=== PATIENT | female | born 1995 | race Two or more races ===

== ENCOUNTER 2024-11-03 09:29 | Outpatient (CLI) | payer OTHER | END 2024-11-03 09:30 | disposition home or self-care (01) | LOC: PRENATAL 09:29 | PROVIDERS: ATTEND Obstetrics & Gynecology Maternal & Fetal Medicine | DX: O36.80X0 Pregnancy with inconclusive fetal viability, not applicable or unspecified (principal); Z36.82 Encounter for antenatal screening for nuchal translucency; Z14.8 Genetic carrier of other disease; O10.019 Pre-existing essential hypertension complicating pregnancy, unspecified trimester; Z3A.12 12 weeks gestation of pregnancy ==

== ENCOUNTER → 2024-12-29 08:12 | Outpatient (CLI) | payer OTHER | END | disposition home or self-care (01) | LOC: PRENATAL 08:12 | PROVIDERS: ATTEND Obstetrics & Gynecology Maternal & Fetal Medicine | DX: O44.00 Complete placenta previa NOS or without hemorrhage, unspecified trimester (principal); O10.019 Pre-existing essential hypertension complicating pregnancy, unspecified trimester; Z3A.20 20 weeks gestation of pregnancy ==

== ENCOUNTER 2025-02-21 14:32 | Outpatient (CLI) | payer OTHER | END 2025-02-21 14:33 | disposition home or self-care (01) | LOC: PRENATAL 14:32 | PROVIDERS: ATTEND Obstetrics & Gynecology Maternal & Fetal Medicine | DX: O26.849 Uterine size-date discrepancy, unspecified trimester (principal); O10.019 Pre-existing essential hypertension complicating pregnancy, unspecified trimester; Z3A.28 28 weeks gestation of pregnancy ==

== ENCOUNTER 2025-04-06 07:49 | Outpatient (CLI) | payer OTHER | END 2025-04-06 09:11 | disposition home or self-care (01) | LOC: PRENATAL 07:49 | PROVIDERS: ATTEND Obstetrics & Gynecology Maternal & Fetal Medicine | DX: O26.849 Uterine size-date discrepancy, unspecified trimester (principal); O36.8199 Decreased fetal movements, unspecified trimester, other fetus; O10.019 Pre-existing essential hypertension complicating pregnancy, unspecified trimester; Z3A.35 35 weeks gestation of pregnancy ==

== ENCOUNTER 2025-04-18 14:00 | Inpatient (IN) | payer OTHER ==
[~2025-04-18] VITALS: Ht 157.5 cm; Wt 88.0 kg
[2025-04-18 14:50] LABS: URINE APPEARANCE Cloudy; URINE BILIRRUBIN Negative (NEGATIVE); URINE BLOOD Large; URINE COLOR Yellow; URINE GLUCOSE Negative (NEGATIVE); URINE KETONE Trace (NEGATIVE); URINE LEUKOCYTE Moderate; URINE NITRATE Negative; URINE PROTEIN Negative (NEGATIVE); URINE UROBILINOGEN 1.0 E.U./dl
[2025-04-18 14:51] LABS: BASO % 0.8 % (0.1-1.2); EOS # 0.13 (0.04-0.54); EOS % 0.9 % (0.7-7.0); LYMPH # 1.83 (1.18-3.74); LYMPH % 12.9 % (19.3-53.1); MEAN PLATELET VOLUME 9.10 fl (9.4-12.4); MONO # 0.97 (0.24-0.82); MONO % 6.8 % (4.7-12.5); NEUT # 10.46 (1.56-6.13); NEUT % 73.8 % (34.0-71.1); RED CELL DISTRIBUTION WIDTH 12.9 % (11.6-14.4)
[2025-04-18 14:54] LABS: URINE BACTERIA 6845.9 uL (0.0-1933); URINE EPITHELIAL CELLS 73.3 uL (0.0-38.8); URINE RBC 10.4 uL (0.0-20.8); URINE WBC 317.9 uL (0.0-23.2)
[2025-04-18 15:30] LABS: ALT/SGPT 28.0 U/L (12-78); AST/SGOT 16.0 U/L (15-37); BILIRUBIN TOTAL 0.47 mg/dL (0.3-1.2); BUN CREA RATIO 16.0 (7.0-25.0); CREATININE SERUM 0.58 mg/dL (0.55-1.02); GFR 120.47; GLOBULINA 3.5 G/DL (2.4-3.5); GLUCOSE FASTING 115.0 mg/dL (65-100); OSMOLALITY SERUM 279.0 MOSM/KG (275-295)
[2025-04-18 15:43] LABS: URINE CAST 0.58 uL (0.0-1.40)
[2025-04-18 16:24] LABS: INR 0.98
[2025-04-18 17:07] LABS: BASOPHIL MAN 1.0 %; LYMPHOCYTE MAN 8.0 %; METAMYELOCYTE 4.0 %; MONOCYTE MAN 5.0 %; NEUTROPHILS MAN 81.0 %
[2025-05-09] MEDS ORDERED: RINGERS SOLUTION,LACTATED 1,000 ML IV SCH (07:00)
[2025-05-09 07:12] VITALS: BP 132/89
[2025-05-09] MEDS ORDERED: ST. JOSEPH ASPI81 M2 PO (07:48)
[2025-05-09] MEDS ORDERED: LABETALOL HCL100 MG PO (07:48)
[2025-05-09] MEDS ORDERED: PRENATAL + DHA1 EAC1 PO (07:48)
[2025-05-09] MEDS ORDERED: MISOPROSTOL 25 MCG/4 ML GEL.W.APPL VAG ONE ×4 (08:15→21:15)
[2025-05-09 08:17] LABS: URINE APPEARANCE Turbid; URINE BILIRRUBIN Negative (NEGATIVE); URINE BLOOD Trace; URINE COLOR Dark Yellow; URINE GLUCOSE Negative (NEGATIVE); URINE KETONE Trace (NEGATIVE); URINE LEUKOCYTE Large; URINE NITRATE Negative; URINE PROTEIN Trace (NEGATIVE); URINE UROBILINOGEN 1.0 E.U./dl
[2025-05-09 08:20] LABS: BASO % 0.8 % (0.1-1.2); EOS # 0.10 (0.04-0.54); EOS % 0.7 % (0.7-7.0); LYMPH # 1.72 (1.18-3.74); LYMPH % 12.0 % (19.3-53.1); MEAN PLATELET VOLUME 9.30 fl (9.4-12.4); MONO # 1.05 (0.24-0.82); MONO % 7.3 % (4.7-12.5); NEUT # 10.87 (1.56-6.13); NEUT % 75.9 % (34.0-71.1); RED CELL DISTRIBUTION WIDTH 13.1 % (11.6-14.4)
[2025-05-09 08:21] LABS: URINE RBC 3.6 uL (0.0-20.8); URINE WBC 2612.6 uL (0.0-23.2)
[2025-05-09 08:36] LABS: URINE BACTERIA > 9821.5 uL (0.0-1933); URINE CAST 0.14 uL (0.0-1.40); URINE CRYSTALS FEW /HPF; URINE EPITHELIAL CELLS > 201.7 uL (0.0-38.8)
[2025-05-09] MEDS ORDERED: CYCLOBENZAPRINE HCL 5 MG TABLET PO NR (09:05)
[2025-05-09 09:07] LABS: ALT/SGPT 20.0 U/L (12-78); AST/SGOT 16.0 U/L (15-37); BILIRUBIN TOTAL 0.76 mg/dL (0.3-1.2); BUN CREA RATIO 12.0 (7.0-25.0); CREATININE SERUM 0.65 mg/dL (0.55-1.02); GFR 105.63; GLOBULINA 3.5 G/DL (2.4-3.5); GLUCOSE FASTING 89.0 mg/dL (65-100); OSMOLALITY SERUM 273.0 MOSM/KG (275-295)
[2025-05-09 09:49] LABS: INR 0.98
[2025-05-09 11:21] VITALS: BP 118/85
[2025-05-09] MEDS ORDERED: MORPHINE SULFATE 4 MG/ML CARTRIDGE IV ONE (11:45)
[2025-05-09 12:05] VITALS: BP 125/81
[2025-05-09 13:07] LABS: BAND MAN 4.0 %; LYMPHOCYTE MAN 13.0 %; METAMYELOCYTE 3.0 %; MONOCYTE MAN 9.0 %; NEUTROPHILS MAN 70.0 %
[2025-05-09 15:22] VITALS: BP 128/81
[2025-05-09] MEDS ORDERED: MORPHINE SULFATE 4 MG/ML VIAL IV ONE ×2 (17:45→21:45)
[2025-05-09 20:00] VITALS: BP 129/70
[2025-05-09] MEDS ORDERED: ACETAMINOPHEN 325 MG TABLET PO PRN (21:45)
[2025-05-09 23:29] VITALS: BP 136/82
[2025-05-10] VITALS (7 sets, daily range): BP systolic 101–135; BP diastolic 79–87
[2025-05-10] MEDS ORDERED: OXYTOCIN 500 ML IV SCH (07:15)
[2025-05-10] MEDS ORDERED: ACETAMINOPHEN 500 MG GEL..CAP PO ONE (08:30)
[2025-05-10] MEDS ORDERED: LABETALOL HCL 100 MG TABLET PO SCH (09:00)
[2025-05-10] MEDS ORDERED: OXYTOCIN 1,000 ML IV SCH (18:00)
[2025-05-10] MEDS ORDERED: CHLORHEXIDINE GLUCONATE 120 ML BOTTLE TP SCH (18:00)
[2025-05-10] MEDS ORDERED: LIDOCAINE HCL 1% 10ML VIAL PERCUT ONE (18:15)
[2025-05-10] MEDS ORDERED: ERYTHROMYCIN BASE OPHT 1GM EACH TUBE OP ONE (18:15)
[2025-05-11] VITALS: BP 122/79
[2025-05-11 06:49] LABS: BASO % 0.4 % (0.1-1.2); EOS # 0.13 (0.04-0.54); EOS % 0.8 % (0.7-7.0); LYMPH # 2.21 (1.18-3.74); LYMPH % 13.2 % (19.3-53.1); MEAN PLATELET VOLUME 9.70 fl (9.4-12.4); MONO # 1.58 (0.24-0.82); MONO % 9.4 % (4.7-12.5); NEUT # 12.43 (1.56-6.13); NEUT % 74.2 % (34.0-71.1); RED CELL DISTRIBUTION WIDTH 13.2 % (11.6-14.4)
[2025-05-11 09:15] VITALS: BP 140/86
[2025-05-11 17:50] VITALS: BP 134/89
[2025-05-12 00:49] VITALS: BP 117/77
[2025-05-12 08:00] VITALS: BP 123/83
== END 2025-05-12 12:29 | disposition home or self-care (01) | DRG 807 ==
LOC: LDR 05-09 06:48 → OB/GYN 05-10 18:19
PROVIDERS: ADMIT Obstetrics & Gynecology; ATTEND Obstetrics & Gynecology
PROC: 3E0P7VZ Introduction of Hormone into Female Reproductive, Via Natural or Artificial Opening (ICD-10-PCS; 2025-05-09)
PROC: 4A1HXCZ Monitoring of Products of Conception, Cardiac Rate, External Approach (ICD-10-PCS; 2025-05-09)
PROC: 10E0XZZ Delivery of Products of Conception, External Approach (ICD-10-PCS; principal; 2025-05-10)
PROC: 0UQG7ZZ Repair Vagina, Via Natural or Artificial Opening (ICD-10-PCS; 2025-05-10)
PROC: 3E033VJ Introduction of Other Hormone into Peripheral Vein, Percutaneous Approach (ICD-10-PCS; 2025-05-10)
DX: O71.4 Obstetric high vaginal laceration alone (principal); Z37.0 Single live birth; Z3A.38 38 weeks gestation of pregnancy